=== PATIENT | male | born 1990 | race American Indian/Alaskan Native ===

== ENCOUNTER 2019-06-24 09:31 | Emergency (ER) | payer OTHER ==
[2019-06-24] MEDS ORDERED: REGLAN IV ONE (09:57)
[2019-06-24] MEDS ORDERED: FLEXERIL PO ONE (09:57)
[2019-06-24] MEDS ORDERED: NACL 0.9% 1000 ML 1,000 ML IV ONE (09:57)
[2019-06-24] MEDS ORDERED: BENADRYL IV ONE (09:57)
[2019-06-24] MEDS ORDERED: TORADOL IV ONE (09:58)
[2019-06-24] MEDS ORDERED: DILAUDID IV ONE ×2 (10:10→11:19)
--- NOTE | 2019-06-24 10:27 | Emergency Department Report ---
<JOHN STEEL - Last Filed: 06/24/19 11:21> ED Headache HPI - General Chief Complaint: Headache Stated Complaint: BACK/HEAD PAIN Time Seen by Provider: 06/24/19 09:48 - History of Present Illness Initial Comments: Patient is a 28-year-old male who presents the emergency room with complaints of a headache to his bilateral temples that began on 06/20. The patient has associated neck pain. He was evaluated in the emergency room at [facility] on 06/[address] head and lumbar puncture at that time which were both normal per patient. He states since the spinal tap he has had worsening headache, worsening neck pain, back pain. He states he has associated nausea/vomiting. He states he did have nausea and vomiting with the headache on 06/20. he denies hx of HAs in the past. he states he was given a prescription for fiorcet but it has not been helping. He states he went back again to [facility] due to his discomfort and was given a prescription for hydrocodone but states has not been helping either and has been making him feel nauseous. He denies any fever, vision changes, numbness, weakness. He denies any past medical history or allergies to medications. he endorses tobacco, marijuana, and ETOH use. Allergies/Adverse Reactions: Allergies No Known Allergies Allergy (Unverified 06/24/19 09:41) Home Medications: Ambulatory Orders Promethazine [Phenergan] 25 mg PO Q6HR PRN #12 tab 06/24/19 ED Review of Systems Comment: All other systems reviewed and negative ED Past Medical Hx - Past Medical History Previous Medical History?: No - Surgical History Past Surgical History?: No - Social History Smoking Status: Current Every Day Smoker Substance Use Type: Marijuana - Medications Home Medications: Home Medications Medication Instructions Recorded Confirmed Last Taken Type Promethazine [Phenergan] 25 mg PO Q6HR PRN #12 tab 06/24/19 Unknown Rx ED Physical Exam - General Limitations: No Limitations General appearance: alert, other (appears to be in moderate discomfort) - Head Head exam: Present: atraumatic, normocephalic - Eye Eye exam: Present: normal appearance, PERRL, EOMI. Absent: nystagmus, periorbital swelling, periorbital tenderness - ENT ENT exam: Present: mucous membranes moist - Neck Neck exam: Present: normal inspection, other (pt will not attempt to flex the neck secondary to pain ) - Respiratory Respiratory exam: Present: normal lung sounds bilaterally. Absent: respiratory distress, wheezes, rales, rhonchi, stridor, chest wall tenderness, accessory muscle use, decreased breath sounds, prolonged expiratory - Cardiovascular Cardiovascular Exam: Present: regular rate, normal rhythm, normal heart sounds. Absent: systolic murmur, diastolic murmur, rubs, gallop - Back Exam Back exam: Present: normal inspection, other (LP site is clean, dry intact without signs of infection ). Absent: paraspinal tenderness, vertebral tenderness - Neurological Exam Neurological exam: Present: alert, oriented X3, CN II-XII intact, normal gait, other (normal finger to nose, normal heel to brown, 5/5 strength in the BUE/BLE, sensation intact, no focal neuro deficit). Absent: motor sensory deficit - Psychiatric Psychiatric exam: Present: normal affect, normal mood - Skin Skin exam: Present: warm, dry, intact ED Course - Reevaluation(s) Reevaluation #1: 06/24/19 10:29 pt evaluated at bedside by Dr. Kenneth Fowler, advised to place CT C-spine ED Medical Decision Making - Lab Data Result diagrams: 06/24/19 10:18 06/24/19 10:18 - Radiology Data Radiology results: report reviewed CT CERVICAL SPINE WITHOUT CONTRAST HISTORY: Posterior neck pain COMPARISON: None TECHNIQUE: CT images of the cervical spine were obtained without contrast. Sagittal and coronal reformats were post-processed. All CT scans at this location are performed using CT dose reduction for ALARA by means of automated exposure control. CONTRAST: None. FINDINGS: Alignment: Normal. Vertebrae:No significant abnormality. Disc Spaces: Midline bulging disc is seen at C3-C4 disc level. At C4-C5 disc level, midline disc protrusion is seen. Small midline bulging disc is seen at C5-C6 disc level. Beam hardening artifacts obscuring the details at C6-C7 and C7-T1 levels. Facet Joints:No significant abnormality. Craniocervical Junction:Cerebellar tonsils are in normal position. Prevertebral Soft Tissues:No significant abnormality. Lung Apices: No significant abnormality. Additional Findings: None IMPRESSION: 1. Midline disc protrusion at C4-C5 disc level Bulging disc at C3-C4 and C5-C6 disc levels Signer Name: Sami York MD Signed: 06/24/2019 10:56 AM Workstation Name: [id number] Transcribed By: BS Dictated By: Sami Arriola MD Electronically Authenticated By: Sami Arriola MD Signed Date/Time: 06/24/19 1056 - Medical Decision Making Patient is a 28-year-old male who presents the emergency room with complaints of a headache to his bilateral temples that began on 06/20. The patient has associated neck pain. He was evaluated in the emergency room at [facility] on 06/[address] head and lumbar puncture at that time which were both normal per patient. He states since the spinal tap he has had worsening headache, worsening neck pain, back pain. He states he has associated nausea/vomiting. He states he did have nausea and vomiting with the headache on 06/20. he denies hx of HAs in the past. he states he was given a prescription for fiorcet but it has not been helping. He states he went back again to [facility] due to his discomfort and was given a prescription for hydrocodone but states has not been helping either and has been making him feel nauseous. He denies any fever, vision changes, numbness, weakness. He denies any past medical history or allergies to medications. he endorses tobacco, marijuana, and ETOH use. VSS. initially pt would not flex the neck secondary to pain. s/p medications pt able to fully flex the neck with no difficulty. pt PARISH improved s/p medications. pt states due to improvement of his PARISH after medications he did not want to receive a blood patch from anesthesia. labs WNL. CT cervical spine shows Midline disc protrusion at C4-C5 disc level. Bulging disc at C3-C4 and C5-C6 disc levels. no neuro deficits on exam. pt given prescription for phenergan. advised pt to please take medication as prescribed as needed. continue to take the medications that you were prescribed by [facility] as needed. follow up with a primary care doctor in the next 2-3 days. return to the emergency room for any new or worsening symptoms. pt evaluated by Dr. Kenneth Fowler, note to follow. 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 continue to take the medications that you were prescribed by [facility] as needed. follow up with a primary care doctor in the next 2-3 days. return to the emergency room for any new or worsening symptoms. Prescriptions: Promethazine [Phenergan] 25 mg PO Q6HR PRN #12 tab PRN Reason: Nausea Referrals: NICKY INGRAM MD [Primary Care Provider] - 2-3 Days [facility] [Outside] - 2-3 Days [facility] [Outside] - 2-3 Days Time of Disposition: 11:23 Print Language: CROATIAN <NANCY FOWLER - Last Filed: 06/24/19 12:01> ED Review of Systems ROS: Stated complaint: BACK/HEAD PAIN Other details as noted in HPI ED Course Vital Signs 06/24/19 06/24/19 09:42 11:47 Temperature 97.8 F 98.7 F Pulse Rate 91 H 48 L Respiratory 18 18 Rate Blood Pressure 141/98 Blood Pressure 133/83 [Left] O2 Sat by Pulse 100 98 Oximetry ED Medical Decision Making - Lab Data Result diagrams: 06/24/19 10:18 06/24/19 10:18 - Medical Decision Making I evaluated Mr. Noguera. Mr. Noguera was evaluated on Thursday for severe headache. He stated that it was the worse headache of his life. He felt as if he had a band around his head. Evaluation occurred at [facility]. He was evaluated with CT head and lumbar puncture. According to his report the diagnostics were negative for acute process. In spite of Fioricet and hydrocodone, he had worsening headache. The headache became severe after the lumbar puncture. He denies fever. He has pain throughout the spine. My Impression post lumbar puncture headache. After treatment in the ED he felt much better. He was hesitant to move his neck initially. Now he moves his neck fluidly. We have added promethazine to his regimen. He received hydromorphone and Imitrex in addition to multiple medications. I recommended bed rest for the next 2 days. I also recommended avoidance of alcohol use. He is discharged home with reassurance and education. Blood patch was offered but declined. I also informed Mr. Noguera of the findings of cervical disc disease Critical care attestation.: If time is entered above; I have spent that time in minutes in the direct care of this critically ill patient, excluding procedure time. ED Disposition Is pt being admited?: No Does the pt Need Aspirin: No
[2019-06-24 10:34] LABS: Basophils % (Auto) 0.6 % (0.0-1.8); Eosinophils % (Auto) 0.9 % (0.0-4.3); Hemoglobin 14.5 gm/dl (11.8-15.2); Lymphocytes # (Auto) 1.8 K/mm3 (1.2-5.4); Lymphocytes % (Auto) 48.4 % (13.4-35.0); Mean Corpuscular HGB Conc 35 % (32-34); Mean Corpuscular Volume 93 fl (84-94); Monocytes # (Auto) 0.3 K/mm3 (0.0-0.8); Monocytes % (Auto) 7.5 % (0.0-7.3); Platelet Count 189 K/mm3 (140-440); Red Blood Count 4.53 M/mm3 (3.65-5.03); Red Cell Distribution Width 13.3 % (13.2-15.2)
[2019-06-24 10:48] LABS: BUN/Creatinine Ratio 9; Blood Urea Nitrogen 9 mg/dL (9-20); Calcium 9.2 mg/dL (8.4-10.2); Hemolysis Index 4
--- NOTE | 2019-06-24 11:00 | Cat Scan Report ---
CT CERVICAL SPINE WITHOUT CONTRAST HISTORY: Posterior neck pain COMPARISON: None TECHNIQUE: CT images of the cervical spine were obtained without contrast. Sagittal and coronal refo rmats were post-processed. All CT scans at this location are performed using CT dose reduction for AL BRADEN by means of automated exposure control. CONTRAST: None. FINDINGS: Alignment: Normal. Vertebrae:No significant abnormality. Disc Spaces: Midline bulging disc is seen at C3-C4 disc level. At C4-C5 disc level, midline disc prot rusion is seen. Small midline bulging disc is seen at C5-C6 disc level. Beam hardening artifacts obsc uring the details at C6-C7 and C7-T1 levels. Facet Joints:No significant abnormality. Craniocervical Junction:Cerebellar tonsils are in normal position. Prevertebral Soft Tissues:No significant abnormality. Lung Apices: No significant abnormality. Additional Findings: None IMPRESSION: 1. Midline disc protrusion at C4-C5 disc level Bulging disc at C3-C4 and C5-C6 disc levels Signer Name: Sami York MD Signed: 06/24/2019 10:56 AM Workstation Name: [id number]
[2019-06-24] MEDS ORDERED: IMITREX SUB-Q ONE (11:19)
[2019-06-24 11:55] LABS: INR 1.04 (0.87-1.13)
[2019-06-24 11:56] LABS: Partial Thromboplastin Time 23.5 Sec. (24.2-36.6)
[2019-06-24 12:21] VITALS: BP 134/81
== END 2019-06-24 12:20 | disposition home or self-care (01) ==
LOC: ED 09:31
DX: G97.1 Other reaction to spinal and lumbar puncture (principal); M54.2 Cervicalgia; M50.30 Other cervical disc degeneration, unspecified cervical region; F17.200 Nicotine dependence, unspecified, uncomplicated; F12.10 Cannabis abuse, uncomplicated; Z79.899 Other long term (current) drug therapy
CPT/HCPCS: 36415; 72125; 80048; 85025; 85610; 85730; 96361; 96372; 96374; 96375; 96376; 99284; J1170; J1200; J1885; J2765; J7030; J3030

== ENCOUNTER 2019-06-26 10:17 | Emergency (ER) | payer OTHER ==
[2019-06-26 10:36] VITALS: BP 130/98
[2019-06-26] MEDS ORDERED: DILAUDID IV ONE ×2 (11:34→13:32)
[2019-06-26] MEDS ORDERED: ZOFRAN IV ONE (11:34)
[2019-06-26] MEDS ORDERED: IMITREX SUB-Q ONE (11:56)
--- NOTE | 2019-06-26 11:56 | Emergency Department Report ---
ED Headache HPI - General Chief Complaint: Headache Stated Complaint: BACK PAIN Time Seen by Provider: 06/26/19 11:27 - History of Present Illness Initial Comments: Bob is a 28-year-old male who presents with persistent headache for the past week. He is evaluated at the hospital Thursday. He had CT scan. Underwent LP lumbar puncture. After lumbar puncture headache became more severe. Headache was so severe that I evaluated patient here in this ED 2 days ago. Was concern for post-lumbar puncture headache. He has very persistent bitemporal headache with neck pain. No fever. No vomiting. Pain is worse with head and neck movement. CT cervical spine obtained here revealed cervical disc disease at multiple levels. Patient cannot recall any significant trauma. Timing/Duration: 1 week Quality: severe Head Injury Location: temporal, other (neck) Allergies/Adverse Reactions: Allergies No Known Allergies Allergy (Unverified 06/24/19 09:41) Home Medications: Ambulatory Orders Promethazine [Phenergan] 25 mg PO Q6HR PRN #12 tab 06/24/19 Cyclobenzaprine [Flexeril] 10 mg PO TID PRN #20 tablet 06/26/19 oxyCODONE /ACETAMINOPHEN [Percocet 5/325] 1 tab PO Q6HR PRN #15 tablet 06/26/19 ED Review of Systems ROS: Stated complaint: BACK PAIN Other details as noted in HPI Comment: All other systems reviewed and negative Constitutional: denies: fever, malaise Cardiovascular: denies: chest pain Gastrointestinal: denies: abdominal pain, nausea, vomiting Neurological: headache ED Past Medical Hx - Past Medical History Previous Medical History?: No - Surgical History Past Surgical History?: No - Social History Smoking Status: Current Every Day Smoker Substance Use Type: Marijuana - Medications Home Medications: Home Medications Medication Instructions Recorded Confirmed Last Taken Type Promethazine [Phenergan] 25 mg PO Q6HR PRN #12 tab 06/24/19 Unknown Rx Cyclobenzaprine [Flexeril] 10 mg PO TID PRN #20 tablet 06/26/19 Unknown Rx oxyCODONE /ACETAMINOPHEN [Percocet 1 tab PO Q6HR PRN #15 tablet 06/26/19 Unknown Rx 5/325] ED Physical Exam - General Limitations: No Limitations General appearance: alert, in no apparent distress - Head Head exam: Present: atraumatic, normocephalic - Eye Eye exam: Present: normal appearance - ENT ENT exam: Present: mucous membranes moist - Neck Neck exam: Present: normal inspection, full ROM - Respiratory Respiratory exam: Present: normal lung sounds bilaterally. Absent: respiratory distress, wheezes, rales, rhonchi - Cardiovascular Cardiovascular Exam: Present: regular rate, normal rhythm, normal heart sounds. Absent: systolic murmur, diastolic murmur, rubs, gallop - GI/Abdominal GI/Abdominal exam: Present: soft, normal bowel sounds. Absent: distended, tenderness, guarding, rebound - Rectal Rectal exam: Present: deferred - Extremities Exam Extremities exam: Present: normal inspection - Back Exam Back exam: Present: normal inspection - Neurological Exam Neurological exam: Present: alert, oriented X3 - Psychiatric Psychiatric exam: Present: normal affect, normal mood - Skin Skin exam: Present: warm, dry, intact, normal color. Absent: rash ED Course Vital Signs 06/26/19 06/26/19 10:35 12:21 Temperature 98.3 F Pulse Rate 83 Respiratory 16 16 Rate Blood Pressure 130/98 [Right] O2 Sat by Pulse 100 Oximetry ED Medical Decision Making - Lab Data Result diagrams: 06/26/19 12:43 06/26/19 12:43 - Medical Decision Making Mr. Wilkerson presents with presumed post lumbar puncture headache which had markedly increased after pre-existing headache. I obtained outside records from [facility] after obtaining written consent of medical release fr om patient. CT head obtained at that time without acute process. Spinal fluid negative for hemorrhage or infection. On Gram stain no white cells or organisms were seen. CSF had contained 2 RBCs and 5 WBCs I do not suspect viral meningitis. He does have significant cervical disc disease which may explain his symptoms. I have given him reassurance. Prescribed Percocet and Flexeril. Strongly recommended evaluation by chiropractor. Strongly recommended evaluation by neurologist. I have referred him to neurologist in the area. I performed patient's search from our prescription monitoring database. He only had previous prescription from emergency visit at [facility]. I highly appreciate the assistance of my anesthesiologist colleague who evaluated patient and performed blood patch. Considering persistent symptoms after blood patch, I and anesthesiologist did not feel that POST LP headache is the diagnosis. headache is changing and migrating which is confounding. Initially bitemporal now persistent at neck. Critical care attestation.: If time is entered above; I have spent that time in minutes in the direct care of this critically ill patient, excluding procedure time. ED Disposition Clinical Impression: Post lumbar puncture headache, Bulging disc, Neck pain, Degeneration of cervi harshal disc without myelopathy Disposition: TO HOME OR SELFCARE Is pt being admited?: No Does the pt Need Aspirin: No Condition: Stable Instructions: Cervical Disc Herniation (ED), Acute Headache (ED) Prescriptions: Cyclobenzaprine [Flexeril] 10 mg PO TID PRN #20 tablet PRN Reason: Muscle Spasm oxyCODONE /ACETAMINOPHEN [Percocet 5/325] 1 tab PO Q6HR PRN #15 tablet PRN Reason: Pain Referrals: [facility] MD ALMAZ [Primary Care Provider] - 3-5 Days DI CRAWFORD MD [Staff Physician] - 3-5 Days
[2019-06-26 13:02] LABS: Basophils % (Auto) 0.5 % (0.0-1.8); Eosinophils # (Auto) 0.1 K/mm3 (0.0-0.4); Eosinophils % (Auto) 3.1 % (0.0-4.3); Hematocrit 44.2 % (35.5-45.6); Hemoglobin 14.8 gm/dl (11.8-15.2); Lymphocytes # (Auto) 1.1 K/mm3 (1.2-5.4); Mean Corpuscular HGB Conc 34 % (32-34); Mean Corpuscular Volume 94 fl (84-94); Monocytes # (Auto) 0.3 K/mm3 (0.0-0.8); Monocytes % (Auto) 7.7 % (0.0-7.3); Platelet Count 196 K/mm3 (140-440); Red Cell Distribution Width 13.5 % (13.2-15.2)
[2019-06-26 13:07] LABS: INR 1.06 (0.87-1.13); Partial Thromboplastin Time 24.6 Sec. (24.2-36.6)
[2019-06-26 13:15] LABS: BUN/Creatinine Ratio 12; Blood Urea Nitrogen 13 mg/dL (9-20); Calcium 9.2 mg/dL (8.4-10.2); Hemolysis Index 8
--- NOTE | 2019-06-26 13:42 | Anesthesia Consultation ---
Anesthesia Consult and Med Hx Date of service: 06/26/19 - Airway Anesthetic Teeth Evaluation: Good ROM Head & Neck: Adequate Mental/Hyoid Distance: Adequate Mallampati Class: Class II Intubation Access Assessment: Good - Pulmonary Exam CTA: Yes - Cardiac Exam Cardiac Exam: RRR - Pre-Operative Health Status ASA Pre-Surgery Classification: ASA2 Proposed Anesthetic Plan: Epidural (epidural blood patch for patient with questionable PDPH.D/W ER Dr Fowler and will place blood patch although ) - Additional Comments Anesthesia Medical History Comments: Patient with questionable post dural puncture headache will place blood patch and reassess after , D/W Dr Fowler ER as patient has not responded to conservative treatment .
--- NOTE | 2019-06-26 14:00 | Progress Note ---
Subjective Date of service: 06/26/19 Principal diagnosis: Headache Interval history: Epidural BLood placed at L3-4 level Patient,t back was prepped with betadine , then a 20 [address] in the epidural space , using the loss of resistance technique then 20 cc of blood was drawn from the right AC vein and injected into the epidural space the needle was withdrawn and a dressing was applied over the puncture site . Post procedure there was moderate improvement in the patient headache from a 9/10 to a 7/10 . I D/W the ER physician Dr Fowler that the patient's lack of resolution of his symptoms points to a cause other than CSF leak as the primary cause of his headache which he had before the LP that was done at [facility] 6 days ago . Objective - Constitutional Vitals: Vital Signs - 12hr 06/26/19 06/26/19 10:35 12:21 Temperature 98.3 F Pulse Rate 83 Respiratory 16 16 Rate Blood Pressure 130/98 [Right] O2 Sat by Pulse 100 Oximetry - Labs CBC & Chem 7: 06/26/19 12:43 06/26/19 12:43 Labs: Abnormal lab results 06/26/19 Range/Units 12:43 WBC 4.0 L (4.5-11.0) K/mm3 [place] % (Auto) 7.7 H (0.0-7.3) % Lymph # 1.1 L (1.2-5.4) K/mm3
[2019-06-26] MEDS ORDERED: DILAUDID IM ONE (14:11)
== END 2019-06-26 16:45 | disposition home or self-care (01) ==
LOC: ED 10:17
DX: M50.30 Other cervical disc degeneration, unspecified cervical region (principal); G97.1 Other reaction to spinal and lumbar puncture
CPT/HCPCS: 36415; 80048; 85025; 85610; 85730; 87806; 96372; 96374; 96375; 96376; 99283; J1170; J2405; J3030